=== PATIENT | female | born 1985 | race Caucasian/White ===

== ENCOUNTER 2016-10-08 15:52 | Emergency (ER) | payer OTHER, MEDICARE ==
[2016-10-08 16:00] VITALS: BP 125/80
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
== END 2016-10-08 19:36 | disposition home or self-care (01) ==
LOC: ER 15:52
DX: M25.552 Pain in left hip (principal); M54.9 Dorsalgia, unspecified; V89.2XXA Person injured in unspecified motor-vehicle accident, traffic, initial encounter; M41.9 Scoliosis, unspecified; Z96.652 Presence of left artificial knee joint; Z96.642 Presence of left artificial hip joint; Z88.6 Allergy status to analgesic agent
CPT/HCPCS: 99283

== ENCOUNTER → 2016-11-10 | Outpatient (CLI) | payer MEDICARE | LOC: RAD 09:15 | PROVIDERS: ATTEND Physician Assistant | DX: M54.6 Pain in thoracic spine (principal) | CPT/HCPCS: 72146 ==

== ENCOUNTER → 2016-11-29 | Outpatient (CLI) | payer MEDICARE | LOC: RAD 14:57 | PROVIDERS: ATTEND Physician Assistant | DX: M54.12 Radiculopathy, cervical region (principal) | CPT/HCPCS: 72141 ==